=== PATIENT | female | born 1955 | race Caucasian/White ===

== ENCOUNTER → 2017-03-04 | Outpatient (CLI) | payer OTHER ==
[~2017-03-04] MED LIST: ALBUTEROL17 GM IH; BIOTIN1000 MICRO PO; CIPRO500 MG PO; OMEGA 3-6-91200 MG PO; ORAXYL20 MG PO; REFRESH EYE DR1 EACH OP; RESTASIS 01 DROP/0.4 BOTH EYES; VIACTIV SOFT C1 EACH PO; VITAMIN B-125000 MCG SL; ZYLET BOTH EYES; [UNRECOGNIZED DRUG - OTHER] BOTH EYES
== END | disposition home or self-care (01) ==
LOC: EKG 08:24
DX: H02.409 Unspecified ptosis of unspecified eyelid (principal); H02.839 Dermatochalasis of unspecified eye, unspecified eyelid; R94.31 Abnormal electrocardiogram [ECG] [EKG]
CPT/HCPCS: 93005

== ENCOUNTER → 2017-03-15 | Outpatient (CLI) | payer OTHER ==
[~2017-03-15] VITALS: Ht 160 cm; Wt 70.0 kg
[~2017-03-15] MED LIST changes: +RESTASIS; +TOPAMAX100 MG PO; +VESICARE5 MG PO
[2017-03-15 16:38] VITALS: BP 132/82
== END | disposition home or self-care (01) ==
LOC: IVINF 02-10 08:00
DX: M85.80 Other specified disorders of bone density and structure, unspecified site (principal)
CPT/HCPCS: 96365; J3489

== ENCOUNTER 2017-04-02 09:46 | Day surgery (SDC) | payer OTHER ==
[~2017-04-02] VITALS: Ht 160 cm; Wt 68.6 kg
[~2017-04-02 09:46] MED LIST changes: +ERYTHROMYC1 APPLICAT BOTH EYES; +MIRAPEX0.25 MG PO; -RESTASIS; +RESTASIS MULTI5.5 ML BOTH EYES
[2017-04-02 10:29] VITALS: BP 139/80
[2017-04-02] MEDS ORDERED: CALTRATE 600 +1 EAC2 PO (10:44)
[2017-04-02] MEDS ORDERED: VITAMIN B-12 51 EACH SL (10:46)
[2017-04-02 15:45] VITALS: BP 144/70
[2017-04-02 16:06] VITALS: BP 125/67
== END 2017-04-02 16:20 | disposition home or self-care (01) ==
LOC: SDC 09:46
DX: H02.403 Unspecified ptosis of bilateral eyelids (principal); J45.909 Unspecified asthma, uncomplicated; Z95.0 Presence of cardiac pacemaker; D64.9 Anemia, unspecified; I83.90 Asymptomatic varicose veins of unspecified lower extremity; Z98.84 Bariatric surgery status; M19.012 Primary osteoarthritis, left shoulder
CPT/HCPCS: J1100; J2250; J2405; J3010; S0020

== ENCOUNTER 2017-04-04 21:29 | Inpatient (IN) | payer OTHER ==
[~2017-04-04] VITALS: Ht 160 cm; Wt 70.0 kg
[~2017-04-04 21:29] MED LIST changes: +CALTRATE 600 +1 EAC2 PO; +VITAMIN B-12 51 EACH SL
[2017-04-05] MEDS ORDERED: FISH OIL 1,0001 EAC7 PO (05:54)
[2017-04-05] MEDS ORDERED: BIOTIN 5000MCG PO (05:54)
[2017-04-05] MEDS ORDERED: FEOSOL325 MG PO (05:55)
[2017-04-05 05:56] VITALS: BP 128/87
[2017-04-05 19:30] VITALS: BP 127/71
[2017-04-05 23:26] VITALS: BP 108/62
[2017-04-06 03:53] VITALS: BP 107/60
[2017-04-06 06:10] LABS: HEMATOCRIT 34.3 % (36.0-46.0); MCV 92.2 FL (83-99)
[2017-04-06 08:39] VITALS: BP 140/79
[2017-04-06 16:12] VITALS: BP 111/59
[2017-04-06 19:46] VITALS: BP 97/57
[2017-04-06 23:15] VITALS: BP 109/57
[2017-04-07 03:56] VITALS: BP 97/56
[2017-04-07 05:44] LABS: HEMATOCRIT 33.9 % (36.0-46.0); MCV 95.5 FL (83-99)
[2017-04-07 07:49] VITALS: BP 96/51
[2017-04-07] MEDS ORDERED: ASPIRIN EC325 MG PO (08:31)
[2017-04-07] MEDS ORDERED: METHOCARBAMOL750 MG PO (08:37)
[2017-04-07] MEDS ORDERED: OXYCODONE HCL5 MG PO (08:37)
[2017-04-07] MEDS ORDERED: OXYCONTIN20 MG PO (08:37)
== END 2017-04-07 09:47 | disposition home or self-care (01) | DRG 483 ==
LOC: ENRESERV 21:29 → CANRESERV 21:29 → 2SOUTH 04-05 05:25 → 3EAST 04-05 05:25 → 2SOUTH 04-05 09:12 → ENRESERV 04-05 10:36 → 2SOUTH 04-05 15:23 → ENRESERV 04-05 15:50 → 2SOUTH 04-05 16:04 → 3EAST 04-05 16:28
PROVIDERS: Orthopaedic Surgery
DX: M19.012 Primary osteoarthritis, left shoulder (principal); S43.422A Sprain of left rotator cuff capsule, initial encounter; G47.30 Sleep apnea, unspecified; Z95.0 Presence of cardiac pacemaker; Z83.3 Family history of diabetes mellitus; Z82.49 Family history of ischemic heart disease and other diseases of the circulatory system
CPT/HCPCS: 73030; 85014; 85018; J0131; J0690; J1100; J1170; J1885; J2250; J2405; J2795; J3010; J7050

== ENCOUNTER → 2017-05-17 | Outpatient (CLI) | payer OTHER ==
[~2017-05-17] MED LIST changes: +ASPIRIN EC325 MG PO; +BIOTIN 5000MCG PO; +FEOSOL325 MG PO; +FISH OIL 1,0001 EAC7 PO; +METHOCARBAMOL750 MG PO; +OXYCODONE HCL5 MG PO; +OXYCONTIN20 MG PO
== END | disposition home or self-care (01) ==
LOC: RAD 07:27
DX: M89.8X7 Other specified disorders of bone, ankle and foot (principal)
CPT/HCPCS: 73630